=== PATIENT | female | born 1990 | race American Indian/Alaskan Native ===

== ENCOUNTER 2022-05-14 05:26 | Emergency (ER) | payer MEDICARE ==
[2022-05-14] MEDS ORDERED: MORPHINE 4 MG/1 ML INJ IV ONE (06:19)
[2022-05-14] MEDS ORDERED: ONDANSETRON 4 MG/2 ML INJ IV ONE (06:20)
[2022-05-14] MEDS ORDERED: SODIUM CHLORIDE 0.9% 100 ML IVPB IV SCH ×2 (07:00→09:00)
[2022-05-14] MEDS ORDERED: SODIUM CHLORIDE 0.9% 1000 ML 1,000 ML IV SCH ×2 (07:00→09:00)
[2022-05-14] MEDS ORDERED: SODIUM CHLORIDE 0.9% 1000 ML 1,000 ML ONE (07:05)
[2022-05-14 07:25] LABS: Basophils # (Auto) 0.1 K/mm3 (0.0-0.1); Basophils % (Auto) 0.7 % (0.0-1.8); Eosinophils # (Auto) 0.1 K/mm3 (0.0-0.4); Eosinophils % (Auto) 0.8 % (0.0-4.3); Hematocrit 28.5 % (30.3-42.9); Hemoglobin 9.3 gm/dl (10.1-14.3); Lymphocytes % (Auto) 5.2 % (13.4-35.0); Mean Corpuscular HGB Conc 33 % (30-34); Mean Corpuscular Volume 78 fl (79-97); Monocytes # (Auto) 1.2 K/mm3 (0.0-0.8); Monocytes % (Auto) 6.7 % (0.0-7.3); Platelet Count 838 K/mm3 (140-440); Red Blood Count 3.67 M/mm3 (3.65-5.03)
[2022-05-14 07:28] LABS: Red Cell Distribution Width 23.3 % (13.2-15.2)
[2022-05-14] MEDS ORDERED: ONDANSETRON 4 MG/2 ML INJ IV SCH (07:30)
[2022-05-14] MEDS ORDERED: MORPHINE 4 MG/1 ML INJ IV SCH (07:30)
[2022-05-14] MEDS ORDERED: HYDROmorphone 1 MG/1 ML INJ IV ONE (07:33)
[2022-05-14] MEDS ORDERED: HYDROmorphone 1 MG/1 ML INJ ONE ×2 (07:34→14:56)
[2022-05-14 08:01] LABS: Alanine Aminotransferase 9 units/L (7-56); Albumin 3.4 g/dL (3.9-5); BUN/Creatinine Ratio 10; Blood Urea Nitrogen 8 mg/dL (7-17); Calcium 9.7 mg/dL (8.4-10.2); Hemolysis Index 42
--- NOTE | 2022-05-14 08:54 | Emergency Department Report ---
<DAKOTAH WARNER - Last Filed: 05/14/22 15:16> ED General Adult HPI - General Chief complaint: Abdominal Pain Stated complaint: LOWER ABD PAIN PUI?: No Time Seen by Provider: 05/14/22 06:17 Source: patient, EMS Mode of arrival: Stretcher Limitations: No Limitations - History of Present Illness Initial comments: 32 YEAR OLD FEMALE STATES SHE HAS ONLY MEDICAL HISTORY OF CROHN'S DISEASE WHO RECENTLY HAD PERMANENT OSTOMY BAG PLACED ON March AT [facility] BROUGHT IN BY EMS TO DAY WITH CONCERN OF SEVERE ABDOMINAL PAIN WELL RECTAL PAIN. PATIENT STATES THIS PAST FRIDAY, SHE HAD HER FIRST HOME HEALTH NURSE WHO CAME TO DO DRESSING CHANGE BUT WAS UNABLE TO SHE WAS IN TOO MUCH PAIN. PATIENT DID MENTION THAT SHE WAS SUPPOSE TO GO TO WOUND CLINIC BUT DIDN'T MAKE IT BECAUSE SHE PASSED OUT. AT THE TIME OF MY EVALUATION, PATIENT IS LAYING ON THE SIDE DUE TO SEVER RECTAL PAIN. Severity scale (0 -10): 10 - Related Data Allergies Allergy/AdvReac Type Severity Reaction Status Date / Time No Known Allergies Allergy Unverified 05/14/22 07:03 ED Review of Systems Comment: All other systems reviewed and negative Constitutional: no symptoms reported Eyes: as per HPI ENT: as per HPI Respiratory: no symptoms reported Cardiovascular: as per HPI Endocrine: no symptoms reported Gastrointestinal: abdominal pain, other ("BUTTOCK" (RECTUM) PAIN) Genitourinary: as per HPI. denies: urgency, dysuria, frequency, hematuria, discharge Musculoskeletal: as per HPI Skin: as per HPI Neurological: as per HPI Psychiatric: as per HPI Hematological/Lymphatic: as per HPI ED Past Medical Hx - Past Medical History Previous Medical History?: Yes Additional medical history: CROHN DISEASE - Surgical History Past Surgical History?: Yes Additional Surgical History: OSTOMY BAG - Social History Smoking Status: Never Smoker ED Physical Exam - General Limitations: No Limitations General appearance: alert, in no apparent distress - Head Head exam: Present: atraumatic, normocephalic, normal inspection - Eye Eye exam: Present: normal appearance, PERRL, EOMI Pupils: Present: normal accommodation - ENT ENT exam: Present: normal exam, normal orophraynx, mucous membranes dry - Neck Neck exam: Present: normal inspection, full ROM - Respiratory Respiratory exam: Present: normal lung sounds bilaterally - Cardiovascular Cardiovascular Exam: Present: normal rhythm, tachycardia, normal heart sounds - GI/Abdominal GI/Abdominal exam: Present: soft. Absent: tenderness, guarding, rebound - Rectal Rectal exam: Present: other (ATTEMPT TO EXAM THE RECTAL REGION; THERE APPEARS TO BE MALODOROUS WOUND WITH PUS DISCHARGE AND SPONGE;) - Extremities Exam Extremities exam: Present: normal inspection, full ROM ED Course - Reevaluation(s) Reevaluation #1: 05/14/22 10:46 INITIAL ATTEMPT WITH FENTANYL AND ATIVAN FOR ANALGESIC AND ANXIOLYTIC EFFECT WAS UNSUCCESSFUL FOR CT SCAN AND FOR PROPER PHYSICAL EXAMINATION; THEREFORE, I WILL GO AHEAD AND SEDATION HER WITH KETAMINE IM X1. Reevaluation #2: 05/14/22 12:46 SPOKE TO [facility] LINE; PENDING FOR THEM TO CALL BACK. 05/14/22 13:[address] TERRAZAS WHO IS AWARE OF THE PATIENT SHE OPERATED ON HER BUT UNFORTUNATELY, DR. TERRAZAS STATES SHE IS NOT ABLE TO ACCEPT THE PATIENT PATIENT REFUSE TO BE TAKEN CARE BY HER ANYMORE LAST TIME SHE WAS ADMITTED THERE, PATIENT RELATIONSHIP WAS INVOLVED. DR. TERRAZAS STATES SHE DID TRY TO REACH OUT TO DR. GLADIS YANG (COLORECTAL SURGEON) TWICE DURING PATINET'S LAST ADMISSION THERE BUT NEVER HEARD RETURN FROM HIM AND RECOMMEND THAT I REACH OUT TO [facility] TO SEE IF PATIENT CAN BE ADMITTED THERE UNDER THEIR CARE. 05/14/22 13:28 WILL CALL [facility] 05/14/22 13:[address] ELYSSA ROWAN'S (GENERAL SURGEON) ACOUSTICAL LOGGING ENGINEER MELANI DR. ROWAN IS IN SURGERY. PER MELANI, THERE IS NO DR. YANG IN COLONRECTAL SURGERY GROUP. ACOUSTICAL LOGGING ENGINEER WILL TALK TO DR. ROWAN REGARDING THIS CASE AND GET BACK TO ME. 05/14/22 14:10 INFORMED TOURIST ESCORT TO GET IN TOUCH WITH [facility] SPOKE TO [facility] AND ASK IF I COULD SPEAK TO OTHER COLONRECTAL SURGEON AT ANOTHER CAMPUS ([facility]) REGARDING THIS PATIENT; INTAKE WILL GET ME CONNECTED. 05/14/22 14:18 MELANI ACOUSTICAL LOGGING ENGINEER CALLED BACK AND STATES NEED COLONRECTAL SURGEON AND RECOMMEND US GOING BACK TO THE ORIGINAL FACILITY; IF NOT, ANOTHER [facility]. [facility]; IF NOT, [facility]. INFORMED TOURIST ESCORT TO TRY [facility] COLONRECTAL GROUP. 05/14/22 14:40 SPOKE TO [facility] COLONRECTAL INTAKE POLYETHYLENE BAG MACHINE OPERATOR WHO STATES THERE IS A DR. YANG AND PATIENT IS ESTABLISHED WITH DR. YANG WELL. SHE WILL SEND A MESSAGE OUT TO DR. YANG AND HAVE HIM CALL ME BACK AT [phone] 05/14/22 14:58 THIS IS A 32 YEAR OLD FEMALE WITH HISTORY OF CROHN DISEASE WHO'S CT SCAN REVEAL PARTIAL SMALL BOWEL RESECTION AND HAD PARTIAL COLECTOMY IN March WITH DIVERTING COLOSTOMY AND I HAVE SPOKE TO DR. TERRAZAS WHO DID THE OPERATION STATES THERE IS NO COLON AT THE SITE WHERE CT SCAN REVEAL CONCERNING FOR COLOVAGINAL FISTULA. DR. SERRA STATES DURING THE LAST PATIENT STAY AT [facility], SHE ATTEMPTED TO CALL DR. YANG AT [facility] TWICE AND WAS UNSUCCESSFUL AND DUE TO THE COMPLICATED RELATIONSHIP SHE AND PATIENT HAD, DR. SERRA IS HESITATE TO ACCEPT THE PATIENT AND RECOMMEND THAT I GET IN TOUCH WITH DR. YANG AT [facility]. I HAVE SPOKE TO INTAKE POLYETHYLENE BAG MACHINE OPERATOR AT [facility] AND STATES PATIENT HAVE HISTORY OF CARE UNDER [facility] AND WILL SEND MESSAGE OUT FOR HIM TO CALL ME BACK. 05/14/22 15:08 DR. YANG CALLED BACK AND STATES UNFORTUNANTLY HE DID NOT OPERATE ON THE PATIENT, THEREFORE, SHE WILL NEED TO GO BACK TO [facility]. I HAVE TOLD TOURIST ESCORT TO CALL [facility] BACK. I WILL SIGN OUT TO MY COLLEAGE, DR. MCKENNA 05/14/22 15:16 ED Medical Decision Making - Lab Data Result diagrams: 05/14/22 06:55 05/14/22 06:55 ED Disposition Clinical Impression: Colovaginal fistula, Sepsis Disposition: 51 HOSPICE/MEDICAL FACILITY Is pt being admited?: Yes Does the pt Need Aspirin: No Condition: Stable Instructions: Abdominal Pain (ED) Referrals: OLVIN CISSE MD [Primary Care Provider] - 3-5 Days <SMEAJ MCKENNA - Last Filed: 05/14/22 15:43> ED Review of Systems ROS: Stated complaint: LOWER ABD PAIN Other details as noted in HPI ED Course Vital Signs 05/14/22 05/14/22 05/14/22 05:35 06:18 06:20 Temperature 98 F 98.9 F Temperature [ Intra-Procedure ] Temperature [ Post-Procedure] Temperature [ Pre-Procedure] Pulse Rate 121 H 114 H 114 H Pulse Rate [ Intra-Procedure ] Pulse Rate [ Post-Procedure] Pulse Rate [Pre -Procedure] Respiratory 16 15 20 Rate Respiratory Rate [Intra- Procedure] Respiratory Rate [Post- Procedure] Respiratory Rate [Pre- Procedure] Blood Pressure 97/56 Blood Pressure [Intra- Procedure] Blood Pressure [Post-Procedure ] Blood Pressure [Pre-Procedure] Blood Pressure 119/66 97/56 [Right] O2 Sat by Pulse 99 100 Oximetry O2 Sat by Pulse Oximetry [ Intra-Procedure ] O2 Sat by Pulse Oximetry [Post -Procedure] 05/14/22 05/14/22 05/14/22 06:30 06:46 07:00 Temperature Temperature [ Intra-Procedure ] Temperature [ Post-Procedure] Temperature [ Pre-Procedure] Pulse Rate 115 H 115 H 118 H Pulse Rate [ Intra-Procedure ] Pulse Rate [ Post-Procedure] Pulse Rate [Pre -Procedure] Respiratory 19 10 L 14 Rate Respiratory Rate [Intra- Procedure] Respiratory Rate [Post- Procedure] Respiratory Rate [Pre- Procedure] Blood Pressure 97/56 97/56 97/56 Blood Pressure [Intra- Procedure] Blood Pressure [Post-Procedure ] Blood Pressure [Pre-Procedure] Blood Pressure [Right] O2 Sat by Pulse Oximetry O2 Sat by Pulse Oximetry [ Intra-Procedure ] O2 Sat by Pulse Oximetry [Post -Procedure] 05/14/22 05/14/22 05/14/22 07:16 07:30 07:46 Temperature Temperature [ Intra-Procedure ] Temperature [ Post-Procedure] Temperature [ Pre-Procedure] Pulse Rate 118 H 107 H Pulse Rate [ Intra-Procedure ] Pulse Rate [ Post-Procedure] Pulse Rate [Pre -Procedure] Respiratory 14 12 13 Rate Respiratory Rate [Intra- Procedure] Respiratory Rate [Post- Procedure] Respiratory Rate [Pre- Procedure] Blood Pressure 118/59 112/65 98/56 Blood Pressure [Intra- Procedure] Blood Pressure [Post-Procedure ] Blood Pressure [Pre-Procedure] Blood Pressure [Right] O2 Sat by Pulse 100 98 100 Oximetry O2 Sat by Pulse Oximetry [ Intra-Procedure ] O2 Sat by Pulse Oximetry [Post -Procedure] 05/14/22 05/14/22 05/14/22 08:00 08:16 08:30 Temperature Temperature [ Intra-Procedure ] Temperature [ Post-Procedure] Temperature [ Pre-Procedure] Pulse Rate 110 H 111 H 111 H Pulse Rate [ Intra-Procedure ] Pulse Rate [ Post-Procedure] Pulse Rate [Pre -Procedure] Respiratory 19 17 19 Rate Respiratory Rate [Intra- Procedure] Respiratory Rate [Post- Procedure] Respiratory Rate [Pre- Procedure] Blood Pressure 102/58 105/63 107/66 Blood Pressure [Intra- Procedure] Blood Pressure [Post-Procedure ] Blood Pressure [Pre-Procedure] Blood Pressure [Right] O2 Sat by Pulse 100 99 100 Oximetry O2 Sat by Pulse Oximetry [ Intra-Procedure ] O2 Sat by Pulse Oximetry [Post -Procedure] 05/14/22 05/14/22 05/14/22 08:46 09:00 09:16 Temperature Temperature [ Intra-Procedure ] Temperature [ Post-Procedure] Temperature [ Pre-Procedure] Pulse Rate 113 H 110 H 107 H Pulse Rate [ Intra-Procedure ] Pulse Rate [ Post-Procedure] Pulse Rate [Pre -Procedure] Respiratory 15 27 H 21 Rate Respiratory Rate [Intra- Procedure] Respiratory Rate [Post- Procedure] Respiratory Rate [Pre- Procedure] Blood Pressure 107/66 117/49 Blood Pressure [Intra- Procedure] Blood Pressure [Post-Procedure ] Blood Pressure [Pre-Procedure] Blood Pressure [Right] O2 Sat by Pulse 100 100 100 Oximetry O2 Sat by Pulse Oximetry [ Intra-Procedure ] O2 Sat by Pulse Oximetry [Post -Procedure] 05/14/22 05/14/22 05/14/22 09:30 09:46 10:00 Temperature Temperature [ Intra-Procedure ] Temperature [ Post-Procedure] Temperature [ Pre-Procedure] Pulse Rate 103 H 109 H 105 H Pulse Rate [ Intra-Procedure ] Pulse Rate [ Post-Procedure] Pulse Rate [Pre -Procedure] Respiratory 17 18 13 Rate Respiratory Rate [Intra- Procedure] Respiratory Rate [Post- Procedure] Respiratory Rate [Pre- Procedure] Blood Pressure 122/98 109/76 108/67 Blood Pressure [Intra- Procedure] Blood Pressure [Post-Procedure ] Blood Pressure [Pre-Procedure] Blood Pressure [Right] O2 Sat by Pulse 100 98 100 Oximetry O2 Sat by Pulse Oximetry [ Intra-Procedure ] O2 Sat by Pulse Oximetry [Post -Procedure] 05/14/22 05/14/22 05/14/22 10:10 10:16 10:30 Temperature Temperature [ Intra-Procedure ] Temperature [ Post-Procedure] Temperature [ Pre-Procedure] Pulse Rate 100 H 104 H Pulse Rate [ Intra-Procedure ] Pulse Rate [ Post-Procedure] Pulse Rate [Pre -Procedure] Respiratory 18 20 Rate Respiratory Rate [Intra- Procedure] Respiratory Rate [Post- Procedure] Respiratory Rate [Pre- Procedure] Blood Pressure 106/61 104/61 Blood Pressure [Intra- Procedure] Blood Pressure [Post-Procedure ] Blood Pressure [Pre-Procedure] Blood Pressure [Right] O2 Sat by Pulse 98 100 100 Oximetry O2 Sat by Pulse Oximetry [ Intra-Procedure ] O2 Sat by Pulse Oximetry [Post -Procedure] 05/14/22 05/14/22 05/14/22 10:45 10:46 11:00 Temperature Temperature [ 98.6 F Intra-Procedure ] Temperature [ 98.9 F Post-Procedure] Temperature [ 98.6 F Pre-Procedure] Pulse Rate 111 H 114 H Pulse Rate [ 114 H Intra-Procedure ] Pulse Rate [ 126 H Post-Procedure] Pulse Rate [Pre 111 H -Procedure] Respiratory 21 18 Rate Respiratory 18 Rate [Intra- Procedure] Respiratory 22 Rate [Post- Procedure] Respiratory 21 Rate [Pre- Procedure] Blood Pressure 106/61 109/64 Blood Pressure 109/64 [Intra- Procedure] Blood Pressure 107/66 [Post-Procedure ] Blood Pressure 106/61 [Pre-Procedure] Blood Pressure [Right] O2 Sat by Pulse 100 100 Oximetry O2 Sat by Pulse 100 Oximetry [ Intra-Procedure ] O2 Sat by Pulse 100 Oximetry [Post -Procedure] 05/14/22 05/14/22 05/14/22 11:16 11:30 11:48 Temperature Temperature [ Intra-Procedure ] Temperature [ Post-Procedure] Temperature [ Pre-Procedure] Pulse Rate 126 H 112 H Pulse Rate [ Intra-Procedure ] Pulse Rate [ Post-Procedure] Pulse Rate [Pre -Procedure] Respiratory 22 Rate Respiratory Rate [Intra- Procedure] Respiratory Rate [Post- Procedure] Respiratory Rate [Pre- Procedure] Blood Pressure 107/66 107/66 Blood Pressure [Intra- Procedure] Blood Pressure [Post-Procedure ] Blood Pressure [Pre-Procedure] Blood Pressure [Right] O2 Sat by Pulse 100 Oximetry O2 Sat by Pulse Oximetry [ Intra-Procedure ] O2 Sat by Pulse Oximetry [Post -Procedure] 05/14/22 05/14/22 05/14/22 12:01 12:15 12:45 Temperature Temperature [ Intra-Procedure ] Temperature [ Post-Procedure] Temperature [ Pre-Procedure] Pulse Rate 114 H 114 H 114 H Pulse Rate [ Intra-Procedure ] Pulse Rate [ Post-Procedure] Pulse Rate [Pre -Procedure] Respiratory 12 11 L 10 L Rate Respiratory Rate [Intra- Procedure] Respiratory Rate [Post- Procedure] Respiratory Rate [Pre- Procedure] Blood Pressure 111/72 115/65 111/68 Blood Pressure [Intra- Procedure] Blood Pressure [Post-Procedure ] Blood Pressure [Pre-Procedure] Blood Pressure [Right] O2 Sat by Pulse 100 100 100 Oximetry O2 Sat by Pulse Oximetry [ Intra-Procedure ] O2 Sat by Pulse Oximetry [Post -Procedure] ED Medical Decision Making - Lab Data Result diagrams: 05/14/22 06:55 05/14/22 06:55 - Medical Decision Making I discussed the patient with Dr. Serra from [facility]. Dr. Serra initially stated that the patient has some risk patient is last time and she demanded that need to be transferred to another facility. She stated that she is feeling unsafe taking care of this patient. I informed Dr. Healy that patient stated that she is fine to go to [place] and to Dr. Serra service again. I offered Dr. Serra to speak to the patient and hear from her directly. I took the phone to the patient room and patient spoke to Dr. Serra and I heard her saying that you are a good doctor and I want you to continue taking care of me. She stated that she was upset at that time because of the pain but she would like to go back to [place]. Dr. Serra accepted the patient to go back to [facility] [place] for further management. Critical care attestation.: If time is entered above; I have spent that time in minutes in the direct care of this critically ill patient, excluding procedure time.
[2022-05-14] MEDS ORDERED: KETAMINE 500 MG/5 ML VIAL MDV IM ONE ×2 (09:59→10:42)
[2022-05-14] MEDS ORDERED: fentaNYL 100 MCG/2 ML INJ IV ONE ×2 (10:09→12:00)
[2022-05-14] MEDS ORDERED: LORazepam 1 MG TAB PO ONE (10:09)
[2022-05-14] MEDS ORDERED: fentaNYL 100 MCG/2 ML INJ ONE (10:10)
[2022-05-14] MEDS ORDERED: LORazepam 2 MG/ML VIAL ONE (10:10)
[2022-05-14] MEDS ORDERED: LORazepam 2 MG/ML VIAL IV ONE (10:19)
[2022-05-14 10:21] LABS: C-Reactive Protein 15.2 mg/dL (0.00-1.30)
[2022-05-14] MEDS ORDERED: PIPERACILLIN/TAZOBACTAM 3.375 3.375 GM/50 ML BAG IV ONE (10:45)
[2022-05-14] MEDS ORDERED: VANCOMYCIN/NS 1 GM/250 ML 1 GM/250 ML BAG IV ONE (10:45)
[2022-05-14] MEDS ORDERED: KETAMINE 500 MG/5 ML VIAL MDV IV ONE (10:52)
--- NOTE | 2022-05-14 11:48 | XRay Report ---
CHEST 1 VIEW 05/14/2022 9:00 AM INDICATION / CLINICAL INFORMATION: Syncope. COMPARISON: None available. FINDINGS: SUPPORT DEVICES: None. HEART / MEDIASTINUM: The heart size and pulmonary vasculature are normal. The aorta is normal in diya roopa. LUNGS / PLEURA: The patient is rotated significantly to the left which is causing relative increased opacity of the right hemithorax compared to the left. No significant pulmonary or pleural abnormality . No pneumothorax. ADDITIONAL FINDINGS: No significant additional findings. IMPRESSION: No acute findings. Signer Name: Jenaro Bravo MD Signed: 05/14/2022 10:05 AM Workstation Name: [id number]
--- NOTE | 2022-05-14 12:16 | Cat Scan Report ---
CT abdomen pelvis w con INDICATION / CLINICAL INFORMATION: CHRONS W/ PERMANANT OSTOMY BAG PRESENTS ABD PAIN. TECHNIQUE: Axial CT images were obtained through the abdomen and pelvis after 100 cc of Omnipaque [address] scans at this location are performed using CT dose reduction for ALARA by means of automated exposure control. COMPARISON: None available. FINDINGS: LOWER CHEST: No significant abnormality LIVER: Liver is enlarged measuring 22 cm. Suspected generalized steatosis. No focal lesion. GALLBLADDER/BILIARY TREE: No significant abnormality PANCREAS: No significant abnormality SPLEEN: No significant abnormality ADRENALS: No significant abnormality RIGHT KIDNEY / URETER: No significant abnormality LEFT KIDNEY / URETER: Beam hardening artifact partially limits evaluation of the left upper pole. No significant abnormality is identified. There is no hydronephrosis. URINARY BLADDER: No significant abnormality REPRODUCTIVE ORGANS: No significant abnormality STOMACH / BOWEL: Postoperative changes of partial small bowel resection in the lower anterior abdomen as well as postoperative changes of partial colectomy and diverting colostomy in the right abdomen. There is no evidence of localized inflammation of the residual small bowel or colon. Nonspecific gas containing region in the region of the anus/perineum measures 4.3 x 3.9 x 5.9 cm (series 2 image 197 and series 601 image 120). There is mild soft tissue thickening in this region. LYMPH NODES: No significant adenopathy. VASCULATURE: No significant abnormality. OTHER: No intraperitoneal free air, free fluid, or focal fluid collection. SKELETAL SYSTEM: No acute osseous findings. IMPRESSION: 1. 5.9 cm gas containing region in the perianal soft tissues/perineum. This is nonspecific and could reflect residual stool in the anus/distal rectum. Colovaginal fistula could have also this appearance . Direct visualization is recommended. 2. Postoperative changes of the small and large bowel with diverting right abdominal colostomy. No ev idence of localized bowel inflammation or obstruction of the remaining GI tract. 3. Other chronic and incidental findings as above. Signer Name: Kip Mas MD Signed: 05/14/2022 12:11 PM Workstation Name: [id number]
--- NOTE | 2022-05-14 13:18 | Consultation ---
History of Present Illness - Reason for Consult Consult date: 05/14/22 Abdominal Pain Requesting physician: DAKOTAH WARNER - History of Present Illness 32 YO Female with Crohn's Disease with Fistulization S/P Ostomy placement presents to ED for evaluation. Patient reports "my stomach hurts". Patient states that she has experienced pain that is localized to the lower abdomen over the past 2 days with persistent and worsening symptoms over the same timeframe. Patient states that pain is 10/10, constant, worsened with movement, without alleviating factors. Patient was seen and evaluated by her home health nurse for dressing change but was unable to undergo wound care due to pain. EMS notified and upon arrival the patient was found to be in distress and subsequent transported to [facility] for further care and evaluation of the aforementioned symptoms. The patient was seen and evaluated in the emergency department. All lab and imaging studies reviewed. Patient with CT scan of the abdomen and pelvis and was found to have evidence of colovaginal fistula as well as gas in the soft tissue of the area of the anus and perineum with the aforementioned symptoms complicated by sepsis. Patient denies chills, chest pain, palpitation, productive cough, skin rash, recent contact, known exposure to COVID-19. No prior admission for review. No medication listed at time of admission for reconciliation. Advanced care planning conducted in ED. Past History Past Medical History: other Past Surgical History: bowel surgery Social history: single. denies: smoking, alcohol abuse, prescription drug abuse Family history: hypertension Medications and Allergies Allergies Allergy/AdvReac Type Severity Reaction Status Date / Time No Known Allergies Allergy Unverified 05/14/22 07:03 Active Meds: Active Medications Sodium Chloride (Nacl 0.9% 1000 Ml) 1,000 mls @ 0 mls/hr IV ONCE@0900 EMEKA Stop: 05/14/22 15:00 Last Admin: 05/14/22 08:55 Dose: 999 mls/hr Review of Systems Constitutional: no weight loss, no fever, no chills Ears, nose, mouth and throat: no ear pain, no tinnitis, no decreased hearing, no nose pain, no nasal discharge Breasts: no change in shape, no swelling, no mass Cardiovascular: no chest pain, no palpitations, no rapid/irregular heart beat, no syncope Respiratory: no cough, no cough with sputum, no excessive sputum, no hemoptysis Gastrointestinal: abdominal pain, no hematemesis, no coffee ground emesis, no melena, no hematochezia, no early satiety, no heartburn Genitourinary Female: no pelvic pain, no flank pain, no dysuria, no urinary frequency, no urgency Rectal: pain, no incontinence, no bleeding Musculoskeletal: no neck stiffness, no neck pain, no shooting arm pain, no low back pain Integumentary: no rash, no pruritis, no sores Neurological: no head injury, no weakness, no seizures, no syncope Psychiatric: no anxiety, no change in sleep habits, no hypersomnia Endocrine: no cold intolerance, no polyphagia, no polydipsia, no excessive sweating, no flushing Hematologic/Lymphatic: no easy bruising, no easy bleeding Allergic/Immunologic: no persistent infections, no anaphylaxis Exam - Constitutional Vitals: Temp Pulse Resp BP Pulse Ox 98.6 F 114 H 10 L 111/68 100 05/14/22 10:45 05/14/22 12:45 05/14/22 12:45 05/14/22 12:45 05/14/22 12:45 General appearance: Present: mild distress, obese - EENT Eyes: Present: PERRL ENT: hearing intact, clear oral mucosa - Neck Neck: Present: supple, normal ROM - Respiratory Respiratory effort: normal Respiratory: bilateral: CTA - Cardiovascular Heart Sounds: Present: S1 & S2. Absent: rub, click - Extremities Extremities: pulses symmetrical, No edema Peripheral Pulses: within normal limits - Abdominal General gastrointestinal: Present: soft, tender, non-distended, normal bowel sounds Female genitourinary: Present: normal - Rectal Rectal Exam: tenderness - Integumentary Integumentary: Present: clear, warm, dry - Musculoskeletal Musculoskeletal: gait normal, strength equal bilaterally - Psychiatric Psychiatric: appropriate mood/affect, intact judgment & insight - Neurologic Neurologic: CNII-XII intact, moves all extremities Results - Labs CBC & Chem 7: 05/14/22 06:55 05/14/22 06:55 Labs: Abnormal lab results 05/14/22 05/14/22 05/14/22 Range/Units 06:55 06:55 08:29 WBC 18.4 H (4.5-11.0) K/mm3 Hgb 9.3 L (10.1-14.3) gm/dl Hct 28.5 L (30.3-42.9) % MCV 78 L (79-97) fl MCH 25 L (28-32) pg RDW 23.3 H (13.2-15.2) % Plt Count 838 H (140-440) K/mm3 Lymph % (Auto) 5.2 L (13.4-35.0) % Lymph # (Auto) 1.0 L (1.2-5.4) K/mm3 Alcorn # (Auto) 1.2 H (0.0-0.8) K/mm3 Seg Neutrophils % 86.6 H (40.0-70.0) % Seg Neutrophils # 16.0 H (1.8-7.7) K/mm3 Carbon Dioxide 21 L (22-30) mmol/L Alkaline Phosphatase 159 H (35-129) units/L C-Reactive Protein 15.20 H (0.00-1.30) mg/dL Total Protein 8.9 H (6.3-8.2) g/dL Albumin 3.4 L (3.9-5) g/dL Assessment and Plan - Patient Problems (1) Crohn's disease Current Visit: Yes Status: Acute
[2022-05-14] MEDS ORDERED: LIP THERAPY VASELINE TP PRN (16:59)
[2022-05-14] MEDS: HYDROmorphone 1 MG/1 ML INJ IV PRN ×2 (17:30→20:45)
[2022-05-15] MEDS: HYDROmorphone 1 MG/1 ML INJ IV PRN ×7 (01:30→23:10)
[2022-05-15 15:51] LABS: Bilirubin,Urine NEG (Negative); Blood,Urine MOD (Negative); Color,Urine Yellow (Yellow); Urobilinogen,Urine < 2.0 mg/dL (<2.0)
[2022-05-15 16:00] LABS: Bacteria,Urine 2+ /HPF (Negative); Mucus,Urine FEW /HPF
[2022-05-15 16:02] LABS: WBC,Urine > 182.0 /HPF (0.0-6.0)
[2022-05-15] MEDS ORDERED: HYDROmorphone 0.5 MG/0.5 ML INJ ONE (23:07)
[2022-05-16] MEDS ORDERED: HYDROmorphone 0.5 MG/0.5 ML INJ ONE ×2 (03:40→06:26)
[2022-05-16] MEDS: HYDROmorphone 1 MG/1 ML INJ IV PRN ×6 (03:43→20:51)
[2022-05-16] MEDS ORDERED: SODIUM HYPOCHLORITE, DAKIN'S 1/2 STRENGTH (0.25%) 473 ML TOPICAL SOLN TP ONE (13:47)
[2022-05-16] MEDS: NITROFURANTOIN MONOHYD/M-CRYST 100 MG CAP PO SCH (17:24)
[2022-05-16] MEDS ORDERED: ONDANSETRON 4 MG/2 ML INJ IV ONE (17:27)
[2022-05-16] MEDS ORDERED: ONDANSETRON 4 MG/2 ML INJ ONE (17:28)
[2022-05-17] MEDS: HYDROmorphone 1 MG/1 ML INJ IV PRN ×2 (00:10→03:52)
[2022-05-17 03:42] VITALS: BP 124/76
[2022-05-17] MEDS ORDERED: ONDANSETRON 4 MG/2 ML INJ ONE (03:42)
[2022-05-17] MEDS: NITROFURANTOIN MONOHYD/M-CRYST 100 MG CAP PO SCH (03:53)
[2022-05-17] MEDS ORDERED: ONDANSETRON 4 MG/2 ML INJ IV ONE (05:59)
== END 2022-05-17 05:13 | disposition hospice, inpatient (51) ==
LOC: ED 05:26
DX: N82.3 Fistula of vagina to large intestine (principal); A41.9 Sepsis, unspecified organism
CPT/HCPCS: 36415; 71045; 74177; 80053; 81001; 82140; 83735; 83880; 84703; 85025; 85652; 86140; 87040; 96361; 96365; 96366; 96368; 96375; 96376; 99285; J1170; J2060; J2270; J2405; J2543; J3010; J3370; J3490; J7030; Q9967